=== PATIENT | male | born 1965 | race Caucasian/White ===

== ENCOUNTER 2018-01-21 12:03 | Emergency (ER) | payer MEDICAID ==
[2018-01-21 12:25] VITALS: BMI 45.9
[2018-01-21 12:28] VITALS: O2SAT 97
--- NOTE | 2018-01-21 13:31 | ED PDOC ---
HPI: Back Time Seen by Provider: 01/21/18 12:25 Chief Complaint (Nursing): Back Pain Chief Complaint (Provider): Back Pain History Per: Patient Additional Complaint(s): 52 yo male, denies any PMH, c/o pain to his lower back radiating to his left groin down his left knee x 3 days, denies any recent trauma. no bowel or bladder dysfunction. Pt reports pain is worse with movement. Pt has not taken anything for pain thus far. Past Medical History Reviewed: Nursing Documentation, Vital Signs Vital Signs: Last Vital Signs Temp 98.5 F 01/21/18 12:25 Pulse 82 01/21/18 12:25 Resp 20 01/21/18 12:25 BP 126/79 01/21/18 12:25 Pulse Ox 97 01/21/18 12:25 - Medical History PMH: No Chronic Diseases - Family History Family History: States: Unknown Family Hx - Living Arrangements Living Arrangements: With Family - Social History Current smoker - smoking cessation education provided: No Alcohol: Social Drugs: Denies - Home Medications Home Medications: Ambulatory Orders Medication Instructions Recorded Cyclobenzaprine [Cyclobenzaprine 10 mg PO TID #20 tab 01/21/18 HCl] Ibuprofen [Motrin] 600 mg PO Q6 #20 tab 01/21/18 oxyCODONE/Acetaminophen [Percocet 1 ea PO Q6 PRN #5 tab 01/21/18 5/325 mg Tab] - Allergies Allergies/Adverse Reactions: Allergies Allergy/AdvReac Type Severity Reaction Status Date / Time No Known Allergies Allergy Verified 01/21/18 13:00 Review of Systems ROS Statement: Except As Marked, All Systems Reviewed And Found Negative Musculoskeletal: Positive for: Back Pain Physical Exam - Reviewed Nursing Documentation Reviewed: Yes Vital Signs Reviewed: Yes - Physical Exam Appears: Positive for: Well, Non-toxic, No Acute Distress Head Exam: Positive for: ATRAUMATIC, NORMAL INSPECTION, NORMOCEPHALIC Skin: Positive for: Normal Color, Warm, DRY Eye Exam: Positive for: EOMI, Normal appearance, PERRL ENT: Positive for: Normal ENT Inspection Neck: Positive for: Normal, Painless ROM Cardiovascular/Chest: Positive for: Regular Rate, Rhythm Respiratory: Positive for: CNT, Normal Breath Sounds Gastrointestinal/Abdominal: Positive for: Normal Exam, Soft Back: Positive for: Normal Inspection. Negative for: Vertebral Tenderness, Muscle Spasm Extremity: Positive for: Normal ROM Neurologic/Psych: Positive for: Alert, Oriented - ECG O2 Sat by Pulse Oximetry: 97 Medical Decision Making Medical Decision Making: Pt is driving, medicated with Toradol IM. Pt reports pain improved after medications. Pt ambulating with steady gair on re -eval. Stable for discharge home. Disposition - Clinical Impression Clinical Impression: Back pain - Patient ED Disposition Is Patient to be Admitted: No - Disposition Disposition: Routine/Home Disposition Time: 19:14 Condition: STABLE Prescriptions: Cyclobenzaprine [Cyclobenzaprine HCl] 10 mg PO TID #20 tab Ibuprofen [Motrin] 600 mg PO Q6 #20 tab oxyCODONE/Acetaminophen [Percocet 5/325 mg Tab] 1 ea PO Q6 PRN #5 tab PRN Reason: Pain, Severe (8-10) Instructions: Low Back Pain in Adults Forms: [facility] (Mongolian)
[2018-01-21 14:58] VITALS: BP 135/81; PULSE 63; RESP 18; TEMP 98.1
== END 2018-01-21 15:02 | disposition home or self-care (01) ==
LOC: H.ER 12:03
DX: M54.9 Dorsalgia, unspecified (principal)
CPT/HCPCS: 96372; 99284; J1885